=== PATIENT | male | born 1945 | race Caucasian/White ===

== ENCOUNTER → 2016-12-24 | Outpatient (CLI) | payer BC, MEDICARE ==
[~2016-12-24] MED LIST: HCTZ 25MG25 MG PO; PANTOPRAZOLE40 MG PO; SERTRALINE50 MG PO; TIMOPTIC OCUDO OP; TOPROL XL 50MG50 MG PO; TRAVATAN Z 5 ML5 ML OU; VYTORIN 10 MG-41 TAB PO
== END ==
LOC: COL.RAD 10:14
DX: M25.552 Pain in left hip (principal)
CPT/HCPCS: J3301; Q9967